=== PATIENT | female | born 2005 | race Caucasian/White ===

== ENCOUNTER 2024-05-18 16:19 | Emergency (ER) | payer OTHER, SELFPAY ==
[2024-05-18] VITALS (15 sets, daily range): BP systolic 98–119; BP diastolic 60–77; PULSE 52–77; TEMP 36.4; O2SAT 96–100; BMI 23.9
--- NOTE | 2024-05-18 16:31 | ED.GENADUL1 ---
HPI HPI - General Adult General Chief complaint: Allergic Reaction Stated complaint: Allergic Reaction Time Seen by Provider: 05/18/24 16:20 Source: patient Mode of arrival: walk-in Limitations: no limitations History of Present Illness HPI narrative: Patient is a 19-year-old female presents to the ER with concerns of her allergic reaction. Patient states she ate some shellfish and crab meat approximately 30 minutes ago and began to feel nauseous with tingling around her mouth. She denies any tongue swelling or shortness of breath. She denies any abdominal pain. Patient states she last had shellfish for the first time a few weeks ago with a mild nausea feeling. Patient notes she is missing work because of the symptoms. She denies breast-feeding and is currently on her menstrual cycle. She denies chance of . Patient appears in no distress at bedside but is anxious about her symptoms and recent new food. Related Data Previous Rx's ?Medication ?Instructions ?Recorded famotidine 20 mg tablet (Pepcid) 20 mg PO DAILY 10 days #10 tabs 05/18/24 ondansetron HCl 4 mg tablet 4 mg PO Q6H PRN nausea and 05/18/24 vomiting #12 tabs Allergies Allergy/AdvReac Type Severity Reaction Status Date / Time No Known Drug Allergies Allergy Verified 05/18/24 16:24 Opioid HPI Opioid Management Most Recent Opioid Data: No Data to Display Review of Systems ROS Constitutional Denies: fever or chills Eyes Denies: change in vision Ears, nose, mouth, and throat Denies: throat pain or neck pain Cardiovascular Denies: chest pain or palpitations Gastrointestinal Reports: nausea; Denies: abdominal pain, vomiting or diarrhea Musculoskeletal Denies: back pain, neck pain, extremity pain, extremity swelling or joint pain Neurological Denies: headache or numbness in extremities Psychiatric Denies: anxiety or mood swings Endocrine Denies: excessive urination Hematologic/Lymphatic Denies: easy bruising Allergic/Immunologic Denies: hives, throat swelling, tongue swelling, facial swelling, wheezing or itchy eyes Exam Narrative Exam Narrative: Nurses notes and vital signs reviewed and patient is not hypoxic. General: The patient appears well and in no apparent distress. Patient is resting comfortably on cart. Skin: Warm, dry, no pallor noted. no evidence of rash. Head: Normocephalic, atraumatic Neck: Supple, trachea mid-line, no tenderness, no lymphadenopathy Eye: Pupils are equal, round and reactive to light, EOMI Ears, Nose, Mouth, and Throat: TM noted for scarring bilaterally, history of ear surgeries, no drainage or discharge. oral mucosa is moist, no posterior oropharynx erythema or hypertrophy, uvula is mid-line, no glottic swelling. Cardiovascular: Regular Rate and Rhythm Respiratory: Patient is in no distress, no accessory muscle use, lungs are clear to auscultation, no wheezing, rales or rhonchi. Chest Wall: no tenderness Back: non-tender, no CVA tenderness Musculoskeletal: normal ROM, no tenderness, no swelling GI: Normal bowel sounds, no tenderness to palpation, no masses appreciated. No rebound, guarding, or rigidity noted. Neurological: A&O x4 Psychiatric: Cooperative Constitutional Vital Signs, click to edit/add: Last Vital Signs Temp 97.5 F L 05/18/24 16:25 Pulse 52 L 05/18/24 17:21 Resp 14 05/18/24 17:21 BP 111/76 05/18/24 17:00 Pulse Ox 98 05/18/24 17:20 O2 Del Method Room Air 05/18/24 16:31 Course Vital Signs Vital signs: Vital Signs Temperature 97.5 F L 05/18/24 16:25 Pulse Rate 63 05/18/24 16:25 Respiratory Rate 14 05/18/24 16:25 Blood Pressure 119/77 05/18/24 16:25 Pulse Oximetry 100 05/18/24 16:25 Oxygen Delivery Method Room Air 05/18/24 16:25 Temperature 97.5 F L 05/18/24 16:25 Pulse Rate 52 L 05/18/24 17:21 Respiratory Rate 14 05/18/24 17:21 Blood Pressure 111/76 05/18/24 17:00 Pulse Oximetry 98 05/18/24 17:20 Oxygen Delivery Method Room Air 05/18/24 16:31 Medical Decision Making MDM Narrative Medical decision making narrative: Patient notes perioral tingling, nausea. Recent ingestion of shellfish, she denies any abdominal pain or diarrhea. She denies any shortness of breath or chest pain. No evidence of lip or tongue swelling. Patient reports having similar symptoms but not as prominent after ingesting shellfish products approximately 2 weeks ago. She was given Zofran for nausea, Benadryl Pepcid and IV Solu-Medrol. Will be observed. We discussed potential food intolerance versus allergy. Patient thankful. Evaluated at 5:10 PM. She notes feeling slightly dizzy but mostly tired, she denies any difficulty breathing or abdominal pain, nausea has resolved. Patient states she feels mostly tired from the medication. She appears in no distress. We discussed avoiding shellfish until follow up with pcp. Patient, Approximately 2 hours past her ingestion, no worsening symptoms. She will be discharged with Pepcid and Zofran. The patient is to followup with primary care physician in next 2-3 days or to return to the emergency department should any of the signs or symptoms worsen or new symptoms develop. Patient had questions answered. The patient agrees with the following Diagnosis and Treatment plan and the patient will be discharged home. SHARED APC VISIT, PHYSICIAN ATTESTATION: [id number] I performed a substantive part of the MDM during the patient?s E/M visit. I personally evaluated and examined the patient. I personally made or approved the documented management plan and acknowledge its risk of complications. My (EKG/X-Ray/US/CT) interpretation . Management/test interpretation discussed with . 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 Referrals: Shaikh Aviles MD [Physician] - 1 week
[2024-05-18] MEDS: DIPHENHYDRAMINE HCL 50 MG/ML VIAL 25 MG IV (16:50)
[2024-05-18] MEDS: ONDANSETRON PF 4 MG/2 ML VIAL IV (16:51)
[2024-05-18] MEDS: METHYLPREDNISOLONE SOD SUCC PF 125 MG/2 ML VIAL IVP (16:51)
[2024-05-18] MEDS: FAMOTIDINE/PF 20 MG/2 ML VIAL IV (16:55)
== END 2024-05-18 17:50 | disposition home or self-care (01) ==
PROVIDERS: Emergency Provider Emergency Medicine
DX: T78.1XXA Other adverse food reactions, not elsewhere classified, initial encounter (principal)
CPT/HCPCS: 96374; 96375; 99284; J1200; J2405; J2919

== ENCOUNTER 2024-11-06 18:03 | Emergency (ER) | payer OTHER, SELFPAY ==
[2024-11-06 18:09] VITALS: BP 102/66; PULSE 63; TEMP 36.8; O2SAT 96; BMI 23.0
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
[2024-11-06] MEDS: KETOROLAC TROMETHAMINE 30 MG/ML VIAL IM (18:40)
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
== END 2024-11-06 19:43 | disposition home or self-care (01) ==
PROVIDERS: Emergency Provider Emergency Medicine
DX: S09.90XA Unspecified injury of head, initial encounter (principal); V49.49XA Driver injured in collision with other motor vehicles in traffic accident, initial encounter; R42 Dizziness and giddiness
CPT/HCPCS: 70450; 72125; 96372; 99285; J1885

== ENCOUNTER 2025-03-23 19:39 | Emergency (ER) | payer OTHER, SELFPAY ==
[2025-03-23 20:05] VITALS: BP 108/65; PULSE 59; TEMP 36.8; O2SAT 100; BMI 23.9
--- NOTE | 2025-03-23 20:30 | ED_ITS ---
HPI - Eye Problem General Chief complaint: Eye Problems Stated complaint: EYE ABRASION Time Seen by Provider: 03/23/25 20:26 Source: patient Mode of arrival: walk-in Limitations: no limitations History of Present Illness HPI Narrative: believes she has a paper cut of the left eye patient states her young child scratched her left eye about 1/2 hour before arrival. States the eye was watery at first but has since cleared up is dry and without symptoms. No visual complaint. feels well now Related Data Previous Rx's ?Medication ?Instructions ?Recorded famotidine 20 mg tablet (Pepcid) 20 mg PO DAILY 10 day s #10 tabs 05/18/24 ondansetron HCl 4 mg tablet 4 mg PO Q6H PRN nausea and 05/18/24 vomiting #12 tabs Allergies Allergy/AdvReac Type Severity Reaction Status Date / Time No Known Drug Allergies Allergy Verified 03/23/25 20:10 Review of Systems ROS Status of ROS 10 or more systems reviewed and unremark able except as noted in history and below PFSH PFSH Social History Little interest or pleasure in doing things: not at all Feeling down, depressed, or hopeless: not at all Exam Constitutional Vital Signs, click to edit/add: Last Vital Signs Temp 98.2 F 03/23/25 20:05 Pulse 59 L 03/23/25 20:05 Resp 16 03/23/25 20:05 BP 108/65 03/23/25 20:05 Pulse Ox 100 03/23/25 20:05 O2 Del Method Room Air 03/23/25 20:05 Common normals: no apparent distress, average body habitus, oriented x3, no limitations, healthy appearing, alert and well nourished [facility] Common normals: normocephalic and head/scalp atraumatic Eye Common normals: PERRL, EOMs intact bilaterally and conjunctivae normal Respiratory Common normals: normal respiratory effort, no retractions, no use of accessory muscles and clear to auscultation bilaterally Cardio Common normals: regular rate, regular rhythm, S1 normal heart sound and S2 normal heart sound Extremity Common normals: normal to inspection and full ROM Neuro Common normals: oriented x3, CN's II-XII intact bilaterally, moves all extremities and no focal motor deficits Psych Appearance: grossly normal Course Vital Signs Vital signs: Vital Signs Temperature 98.2 F 03/23/25 20:05 Pulse Rate 59 L 03/23/25 20:05 Respiratory Rate 16 03/23/25 20:05 Blood Pressure 108/65 03/23/25 20:05 Pulse Oximetry 100 03/23/25 20:05 Oxygen Delivery Method Room Air 03/23/25 20:05 Temperature 98.2 F 03/23/25 20:05 Pulse Rate 59 L 03/23/25 20:05 Respiratory Rate 16 03/23/25 20:05 Blood Pressure 108/65 03/23/25 20:05 Pulse Oximetry 100 03/23/25 20:05 Oxygen Delivery Method Room Air 03/23/25 20:05 MDM - Eye Problem MDM Narrative Medical decision making narrative: patient describes her daughter scratching her left eye at home. Her eye exam now is normal. No conjunctival irritation. no edema. no obvious irritation of the eye. overall eye exam is normal. Patient reassured and discharged home to follow up with her doctor Discharge Plan Discharge Chief Complaint: Eye Problems Clinical Impression: Corneal abrasion Patient Disposition: Home, Self-Care Prescriptions / Home Meds: No Action famotidine [Pepcid] 20 mg tablet 20 mg PO DAILY 10 Days Qty: 10 0RF ondansetron HCl 4 mg tablet 4 mg PO Q6H PRN (Reason: nausea and vomiting) Qty: 12 0RF Print Language: Samoan Instructions: Corneal Abrasion (ED) Additional Instructions: follow up with your doctor or return if increasing discomfort of the eye Referrals: Physician,Non-Staff, MD [Primary Care Provider] - 1 week
--- NOTE | 2025-03-23 20:32 | PC.NURSE ---
Visual acuity not done. Pt states no vision changes and does not wear contacts or glasses. No s/s of eye irritation. Eye is clear, not red, and no watering.
== END 2025-03-23 20:42 | disposition home or self-care (01) ==
PROVIDERS: Emergency Provider Internal Medicine
DX: S05.02XA Injury of conjunctiva and corneal abrasion without foreign body, left eye, initial encounter (principal); W50.4XXA Accidental scratch by another person, initial encounter
CPT/HCPCS: 99282